=== PATIENT | male | born 1990 | race Caucasian/White ===

== ENCOUNTER 2017-02-20 10:25 | Emergency (ER) | payer MEDICARE | END 2017-02-20 12:27 | disposition home or self-care (01) | LOC: ER1 10:25 | DX: S93.412A Sprain of calcaneofibular ligament of left ankle, initial encounter (principal); S93.492A Sprain of other ligament of left ankle, initial encounter; F17.290 Nicotine dependence, other tobacco product, uncomplicated; W01.0XXA Fall on same level from slipping, tripping and stumbling without subsequent striking against object, initial encounter | CPT/HCPCS: 73610; 73630; 99283 ==

== ENCOUNTER 2021-04-24 23:43 | Inpatient (IN) | payer OTHER ==
[~2021-04-24] VITALS: Ht 182.9 cm; Wt 90.7 kg
[2021-04-25 03:23] LABS: RED BLOOD COUNT 4.29 M/UL (4.20-5.50); WHITE BLOOD COUNT 9.3 K/UL (4.5-11.0)
[2021-04-25 03:31] LABS: BUN/CREATININE RATIO 13 (0-10)
[2021-04-25] MEDS ORDERED: BACTRIM DS TAB1 EACH PO (05:50)
[2021-04-25 07:54] LABS: BUN/CREATININE RATIO 14 (0-10)
[2021-04-25 08:02] LABS: HEMOGLOBIN 10.9 gm/dl (14.0-17.5); RED BLOOD COUNT 3.92 M/UL (4.20-5.50); WHITE BLOOD COUNT 7.3 K/UL (4.5-11.0)
[2021-04-26 06:01] LABS: HEMOGLOBIN 10.8 gm/dl (14.0-17.5); RED BLOOD COUNT 3.92 M/UL (4.20-5.50)
[2021-04-26 06:27] LABS: BUN/CREATININE RATIO 12 (0-10)
[2021-04-27 05:11] LABS: HBSAG SCREEN Negative (Negative); HEP B CORE AB, TOT Negative (Negative); HEP C VIRUS AB <0.1 (0.0-0.9)
[2021-04-27 06:00] LABS: BUN/CREATININE RATIO 12 (0-10)
[2021-04-27 08:14] LABS: HIV SCREEN 4TH GENERATION WRFX Non Reactive (Non Reactive)
== END 2021-04-27 13:10 | disposition left against medical advice (07) | DRG 602 ==
LOC: ER1 23:43 → CDU 04-25 04:25 → MED SURG 4 04-25 04:25
PROVIDERS: Internal Medicine; Internal Medicine Infectious Disease; Physician Assistant; ADMIT Internal Medicine
PROC: 8E0ZXY6 Isolation (ICD-10-PCS; principal; 2021-04-27)
DX: L03.116 Cellulitis of left lower limb (principal); U07.1 COVID-19; L02.416 Cutaneous abscess of left lower limb; E87.6 Hypokalemia; F15.10 Other stimulant abuse, uncomplicated; Z53.29 Procedure and treatment not carried out because of patient's decision for other reasons; Z83.3 Family history of diabetes mellitus; Z72.0 Tobacco use
CPT/HCPCS: 36415; 71045; 73701; 80048; 80053; 80202; 80307; 82550; 82553; 82962; 83605; 84132; 84484; 85025; 85027; 85652; 86140; 86704; 86706; 86708; 86803; 87040; 87081; 87340; 87389; 93971; 96374; 96375; 99285; J0295; J0690; J0696; J1650; J1885; J3370; J7030; J7070; Q9967; U0002